=== PATIENT | male | born 1975 | race Caucasian/White ===

== ENCOUNTER 2017-11-09 20:32 | Emergency (ER) | payer OTHER ==
[~2017-11-09] VITALS: Ht 175.3 cm; Wt 84.3 kg
[2017-11-09 20:42] VITALS: TEMP 36.8; Ht 175.3 cm; Wt 84.3 kg
[2017-11-09] MEDS ORDERED: PROPARACAINE HCL 0.5% OP SOLN 15 ML BTL OP STA (21:08)
[2017-11-09] MEDS ORDERED: DIPHTHERIA/TETANUS/PERTUSSIS 0.5 ML SYR/VIAL IM. ONE (22:00)
[2017-11-09 22:30] VITALS: BP 124/76; PULSE 66; O2SAT 98
--- NOTE | 2017-11-11 01:43 | EMERGENCY ROOM VISIT NOTE ---
ED Visit Note First contact with patient: 21:08 Chief Complaint: Electrical arc flash to the eyes. History of Present Illness: Mr. Edmonds is a 42-year-old white male who relates into the ED complaining of eye burning after an arc flash to the eyes. Patient reports historically he has had amblyopia with corrective muscle surgery as a child and is status post Lasix surgery. 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 He reports at that time he developed a burning sensation. Since that time the burning sensation has been constant. He currently rates his discomfort 1/10. The pain is nonradiating. He has not identified any aggravating or alleviating factors related to the pain. He has not taken any medication for pain prior to arrival at the hospital. He denies any associated symptoms including headache, dizziness, lightheadedness, visual changes, eye drainage, light sensitivity, drawing curtains, floaters. Review of Systems: As noted above in history of present illness. Past Medical History: As previously noted and pancreatitis and unspecified right knee surgery. Current Medications: Patient denies. Allergies to Medications: Patient denies. Social History: Patient is currently employed; he feels safe in his home environment; he denies tobacco use admits to social alcohol use. Physical Examination: Vital Signs: Date Time Temp Pulse Resp B/P (MAP) Pulse Ox O2 Delivery O2 Flow Rate FiO2 11/09/17 22:30 66 16 124/76 98 11/09/17 20:42 36.8 71 20 145/95 98 Room Air GENERAL: 42-year-old male in mild distress due to symptoms, nontoxic-appearing, afebrile and hemodynamically stable. NEUROLOGICAL: Awake, alert and oriented to person, place and time. Answering questions appropriately and following commands. SKIN: Warm, dry and pink. No soft tissue eruptions or trauma noted. HEENT: Atraumatic and normocephalic. No singed hair or facial cade noted. PERRLA. EOMI without nystagmus. Sclera white and conjunctiva pink without drainage. No foreign bodies noted under the eyelids are embedded in the cornea. The anterior chamber is clear. On slit lamp examination with staining I do not see any corneal cade, foreign bodies or other trauma. Visual acuity: Right 20/70 without correction, Left 20/50 without correction. ED Course: Patient is assessed as noted above. Alcaine was used to anesthetize the eyes for examination. Patient was given an Adacel booster IM. Patient was educated about today's findings and instructed on his treatment plan ; he verbalized understanding and agreement with this plan. Clinical Impression: Eye pain. Decision-Making: Initially my differential diagnosis I considered corneal burn, corneal ulcer, corneal abrasion, corneal foreign body and other causes. Disposition: Patient discharged home in stable condition; prior to departure he was reassessed and subjectively reported he was pain-free. Plan: Patient was encouraged you 650 mg of acetaminophen or 600 mg of ibuprofen every 6 hours as needed for pain. Patient was encouraged use eye protection. Patient was encouraged to follow-up with neurologist or return to the ED for worsening pain, visual changes, eye drainage, fevers or any new/concerning symptoms.
== END 2017-11-09 22:30 | disposition home or self-care (01) ==
LOC: C.EDB 20:33 → C.EDD 22:30
DX: H57.13 Ocular pain, bilateral (principal); W89.0XXA Exposure to welding light (arc), initial encounter; Y99.0 Civilian activity done for income or pay; Z23 Encounter for immunization